=== PATIENT | male | born 1970 | race Asian ===

== ENCOUNTER 2022-07-25 12:37 | Inpatient (IN) | payer MEDICAID, OTHER ==
[~2022-07-25] VITALS: Ht 170.2 cm; Wt 63.0 kg
[2022-07-25] MEDS ORDERED: LEVETIRACETAM 1000MG PREMIX 100 ML IV ONE (13:15)
[2022-07-25 16:06] LABS: BASOPHILS % 0.3 % (0.0-2.0); HEMATOCRIT. 40.4 % (42.0-52.0); LYMPHOCYTES % 12.9 % (20.0-50.0); MEAN CORPUSCULAR HEMOGLOBIN 35.4 pg (28.0-32.0); MEAN CORPUSCULAR VOLUME 102.2 fL (80.0-94.0); MEAN PLATELET VOLUME 9.3 fl (7.4-10.4); MONOCYTES % 11.9 % (2.0-8.0); NEUTROPHILS % 74.9 % (40.0-76.0); PLATELET 108 x1000/uL (130-400); RED BLOOD CELL COUNT 3.96 mill/uL (4.7-6.1); RED CELL DISTRIBUTION WIDTH 12.8 % (11.6-14.6)
[2022-07-25 16:10] LABS: CHLORIDE 96 mEq/L (98-107)
[2022-07-25 16:21] LABS: ETHANOL BLOOD < 10 mg/dL
[2022-07-25] MEDS ORDERED: POTASSIUM CHLORIDE 20MEQ/PACKET PO ONE (16:45)
[2022-07-25] MEDS ORDERED: DOCUSATE SODIUM 100MG CAPSULE PO PRN (17:45)
[2022-07-25] MEDS ORDERED: NITROGLYCERIN 0.4MG TABLET SL SL PRN (17:45)
[2022-07-25] MEDS ORDERED: GUAIFENESIN 200MG/10ML SUGAR FREE UDC PO PRN (17:45)
[2022-07-25] MEDS ORDERED: KETOROLAC 15MG/ML VIAL IV PRN (17:45)
[2022-07-25] MEDS ORDERED: ACETAMINOPHEN 325MG TABLET PO PRN ×2 (17:45)
[2022-07-25] MEDS ORDERED: POTASSIUM CHLORIDE 20MEQ TABLET SR PO NR (17:45)
[2022-07-25] MEDS ORDERED: ZOLPIDEM TARTRATE 5MG TABLET PO PRN (17:45)
[2022-07-25] MEDS ORDERED: ONDANSETRON HCL 4MG/2ML INJ IV PRN (17:45)
[2022-07-25] MEDS ORDERED: KCL 20MEQ/100ML PREMIX 100 ML IV NR (17:45)
[2022-07-25] MEDS ORDERED: CHLORDIAZEPOXIDE 25MG CAPSULE PO ONE (17:45)
[2022-07-25] MEDS ORDERED: PIPERACILLIN/TAZ 3.375G PREMIX 50 ML IV SCH (18:30)
[2022-07-25] MEDS ORDERED: MVI, ADULT NO.1 10 ML, FOLIC ACID 1 MG, THIAMINE HCL 100 MG in SODIUM CHLORIDE 0.9% 1,0... IV ONE ×4 (19:00)
[2022-07-25 19:32] LABS: T4 FREE 1.31 ng/dL (0.76-1.46)
[2022-07-25 19:54] LABS: VITAMIN B12 SERUM 1734 pg/mL (211-911)
[2022-07-25] MEDS ORDERED: MAGNESIUM 4 G PREMIX 100 ML IV ONE (20:15)
[2022-07-25] MEDS ORDERED: LORAZEPAM 2MG/ML CPJ IV PRN (21:15)
[2022-07-25] MEDS: ENOXAPARIN 40MG/0.4ML SYR SUBCUT SCH (21:32)
[2022-07-25] MEDS: FAMOTIDINE 20MG TABLET PO SCH (21:32)
[2022-07-25 22:05] VITALS: BP 199/148
[2022-07-25 22:14] VITALS: BP 199/148
[2022-07-26] VITALS: BP 144/90
[2022-07-26] MEDS ORDERED: CLONIDINE 0.1MG TABLET PO PRN
[2022-07-26 00:27] LABS: CLARITY URINE CLEAR (CLEAR); COLOR URINE YELLOW (YELLOW); KETONES URINE NEGATIVE (NEGATIVE); LEUKOCYTE ESTERASE URINE NEGATIVE (NEGATIVE); NITRITE URINE NEGATIVE (NEGATIVE); OCCULT BLOOD URINE NEGATIVE (NEGATIVE); PROTEIN URINE TRACE (NEGATIVE); SPECIFIC GRAVITY URINE 1.013 (1.005-1.030)
[2022-07-26] MEDS ORDERED: KCL 20MEQ/100ML PREMIX 100 ML IV NR (00:30)
[2022-07-26] MEDS: CHLORDIAZEPOXIDE 25MG CAPSULE PO SCH ×4 (00:38→21:50)
[2022-07-26 01:35] LABS: *AMPHETAMINES SCREEN URINE NEGATIVE (NEGATIVE); *BARBITURATES SCREEN URINE NEGATIVE (NEGATIVE); *BENZODIAZEPINES SCREEN URINE NEGATIVE (NEGATIVE); *COCAINE SCREEN URINE NEGATIVE (NEGATIVE); CANNABINOID URINE SCREEN NEGATIVE (NEGATIVE); METHADONE URINE SCREEN NEGATIVE (NEGATIVE); OPIATES URINE SCREEN NEGATIVE (NEGATIVE); PHENCYCLIDINE URINE SCREEN NEGATIVE (NEGATIVE)
[2022-07-26] MEDS ORDERED: AMLO2.5T2 MT (03:41)
[2022-07-26] MEDS ORDERED: FINA1TAB18 PO (03:41)
[2022-07-26] MEDS ORDERED: LOSA50TA41 MT (03:41)
[2022-07-26 04:00] VITALS: BP 148/88
[2022-07-26] MEDS ORDERED: PIPERACILLIN/TAZOBACTAM 3.375G in DEXT 5% WATER 50ML IV SCH (05:00)
[2022-07-26] MEDS: PIPERACILLIN/TAZOBACTAM 3.375G in DEXT 5% WATER 50ML IV SCH ×3 (06:04→21:52)
[2022-07-26 07:46] LABS: CHLORIDE 99 mEq/L (98-107)
[2022-07-26 07:54] LABS: PHOSPHORUS 2.1 mg/dL (2.5-4.9)
[2022-07-26 08:00] VITALS: BP 148/95
[2022-07-26 08:16] LABS: HEMATOCRIT. 37.9 % (42.0-52.0); HEMOGLOBIN. 12.9 g/dL (14.0-18.0); MEAN CORPUSCULAR HEMOGLOBIN 36.1 pg (28.0-32.0); MEAN PLATELET VOLUME 10.4 fl (7.4-10.4); PLATELET 78 x1000/uL (130-400); RED BLOOD CELL COUNT 3.58 mill/uL (4.7-6.1); RED CELL DISTRIBUTION WIDTH 12.8 % (11.6-14.6)
[2022-07-26] MEDS ORDERED: LEVETIRACETAM 500MG PREMIX 100 ML IV SCH (09:00)
[2022-07-26] MEDS: FAMOTIDINE 20MG TABLET PO SCH ×2 (09:20→21:50)
[2022-07-26] MEDS: FOLIC ACID 1MG TABLET PO SCH (09:20)
[2022-07-26] MEDS: THIAMINE HCL 100MG TABLET PO SCH (09:21)
[2022-07-26] MEDS: LEVETIRACETAM 500MG PREMIX 100 ML IV SCH ×2 (10:30→21:53)
[2022-07-26 12:14] VITALS: BP 135/87
[2022-07-26 13:18] LABS: PLATELET ESTIMATE DECREASED
[2022-07-26] MEDS ORDERED: WATER IV ONE (13:45)
[2022-07-26] MEDS ORDERED: DEXTROSE 5% IV ONE (13:45)
[2022-07-26] MEDS ORDERED: POTASSIUM PHOS M BASIC D BASIC IV ONE (13:45)
[2022-07-26] MEDS ORDERED: POTASSIUM PHOS,M-BASIC-D-BASIC 30 MMOL in DEXT 5% WATER 500 ML IV NR (15:30)
[2022-07-26] MEDS: FUROSEMIDE 20MG/2ML VIAL IVP SCH (15:48)
[2022-07-26 15:56] VITALS: BP 134/96
[2022-07-26 20:00] VITALS: BP 111/92
[2022-07-26] MEDS: ENOXAPARIN 40MG/0.4ML SYR SUBCUT SCH (21:00)
[2022-07-27] VITALS: BP 155/102
[2022-07-27 06:00] VITALS: BP 130/85
[2022-07-27] MEDS: CHLORDIAZEPOXIDE 25MG CAPSULE PO SCH ×3 (06:22→21:39)
[2022-07-27] MEDS: PIPERACILLIN/TAZOBACTAM 3.375G in DEXT 5% WATER 50ML IV SCH ×3 (06:22→21:39)
[2022-07-27 08:00] VITALS: BP 140/94
[2022-07-27 08:15] LABS: BASOPHILS % 0.8 % (0.0-2.0); EOSINOPHILS % 0.7 % (0.0-5.0); HEMATOCRIT. 38.7 % (42.0-52.0); HEMOGLOBIN. 13.4 g/dL (14.0-18.0); MEAN CORPUSCULAR HEMOGLOBIN 35.5 pg (28.0-32.0); MEAN CORPUSCULAR VOLUME 102.8 fL (80.0-94.0); MONOCYTES % 13.1 % (2.0-8.0); NEUTROPHILS % 66.4 % (40.0-76.0); PLATELET 116 x1000/uL (130-400); RED BLOOD CELL COUNT 3.77 mill/uL (4.7-6.1); RED CELL DISTRIBUTION WIDTH 12.7 % (11.6-14.6)
[2022-07-27 08:39] LABS: CHLORIDE 98 mEq/L (98-107)
[2022-07-27] MEDS: FAMOTIDINE 20MG TABLET PO SCH ×2 (08:43→21:39)
[2022-07-27] MEDS: THIAMINE HCL 100MG TABLET PO SCH (08:43)
[2022-07-27] MEDS: FOLIC ACID 1MG TABLET PO SCH (08:43)
[2022-07-27] MEDS: FUROSEMIDE 20MG/2ML VIAL IVP SCH (08:44)
[2022-07-27] MEDS: LEVETIRACETAM 500MG PREMIX 100 ML IV SCH (08:47)
[2022-07-27] MEDS ORDERED: THIA50TA12 MT (09:27)
[2022-07-27] MEDS ORDERED: FURO-152 MT (09:27)
[2022-07-27] MEDS ORDERED: FOLI-43 MT (09:27)
[2022-07-27] MEDS ORDERED: LORAZEPAM 2MG/ML CPJ IV SCH (11:30)
[2022-07-27] MEDS: NICOTINE 21MG PATCH TD SCH (11:43)
[2022-07-27 12:00] VITALS: BP 210/117
[2022-07-27] MEDS ORDERED: CHLORDIAZEPOXIDE 25MG CAPSULE PO NR (12:00)
[2022-07-27] MEDS: CLONIDINE 0.2MG TABLET PO PRN ×2 (12:21→23:55)
[2022-07-27] MEDS: DIPHENHYDRAMINE 50MG CAPSULE PO PRN (12:31)
[2022-07-27] MEDS ORDERED: FOLIC ACID 1 MG, THIAMINE HCL 100 MG, MVI, ADULT NO.1 10 ML in SODIUM CHLORIDE 0.9% 1,0... IV ONE ×4 (13:00)
[2022-07-27] MEDS ORDERED: [UNRECOGNIZED DRUG - REMARK] IV ONE ×4 (13:00)
[2022-07-27] MEDS ORDERED: POTASSIUM CHLORIDE 20MEQ TABLET SR PO SCH ×2 (14:00→18:00)
[2022-07-27] MEDS ORDERED: AMLODIPINE 10MG TABLET PO SCH (15:15)
[2022-07-27] MEDS ORDERED: MAGNESIUM 4 G PREMIX 100 ML IV ONE (15:30)
[2022-07-27 16:00] VITALS: BP 127/83
[2022-07-27] MEDS: LORAZEPAM 2MG/ML CPJ IV PRN ×2 (17:21→23:27)
[2022-07-27 20:02] VITALS: BP 139/82
[2022-07-27] MEDS: ENOXAPARIN 40MG/0.4ML SYR SUBCUT SCH (21:40)
[2022-07-28] VITALS (7 sets, daily range): BP systolic 121–147; BP diastolic 83–97
[2022-07-28] MEDS: LORAZEPAM 2MG/ML CPJ IV PRN (05:42)
[2022-07-28] MEDS: CHLORDIAZEPOXIDE 25MG CAPSULE PO SCH ×3 (05:42→21:39)
[2022-07-28] MEDS: PIPERACILLIN/TAZOBACTAM 3.375G in DEXT 5% WATER 50ML IV SCH ×3 (05:43→21:38)
[2022-07-28 05:57] LABS: BASOPHILS % 0.8 % (0.0-2.0); EOSINOPHILS % 1.1 % (0.0-5.0); HEMATOCRIT. 34.4 % (42.0-52.0); HEMOGLOBIN. 11.9 g/dL (14.0-18.0); LYMPHOCYTES % 19.9 % (20.0-50.0); MEAN CORPUSCULAR HEMOGLOBIN 35.5 pg (28.0-32.0); MEAN CORPUSCULAR VOLUME 102.7 fL (80.0-94.0); MEAN PLATELET VOLUME 9.4 fl (7.4-10.4); NEUTROPHILS % 65.2 % (40.0-76.0); PLATELET 149 x1000/uL (130-400); RED BLOOD CELL COUNT 3.35 mill/uL (4.7-6.1); RED CELL DISTRIBUTION WIDTH 12.4 % (11.6-14.6)
[2022-07-28 06:28] LABS: CHLORIDE 105 mEq/L (98-107)
[2022-07-28] MEDS ORDERED: POTASSIUM CHLORIDE 20MEQ TABLET SR PO NR (07:30)
[2022-07-28] MEDS ORDERED: MAGNESIUM 2 G PREMIX 50 ML IV NR (08:00)
[2022-07-28] MEDS: THIAMINE HCL 100MG TABLET PO SCH (08:48)
[2022-07-28] MEDS: FOLIC ACID 1MG TABLET PO SCH (08:48)
[2022-07-28] MEDS: FAMOTIDINE 20MG TABLET PO SCH ×2 (08:49→21:38)
[2022-07-28] MEDS: NICOTINE 21MG PATCH TD SCH (08:51)
[2022-07-28] MEDS: FUROSEMIDE 20MG/2ML VIAL IVP SCH (09:00)
[2022-07-28] MEDS: ENOXAPARIN 40MG/0.4ML SYR SUBCUT SCH (21:38)
[2022-07-29 04:00] VITALS: BP 139/103
[2022-07-29] MEDS: PIPERACILLIN/TAZOBACTAM 3.375G in DEXT 5% WATER 50ML IV SCH ×3 (05:54→21:31)
[2022-07-29] MEDS: CHLORDIAZEPOXIDE 25MG CAPSULE PO SCH ×3 (06:01→21:31)
[2022-07-29 08:00] VITALS: BP 146/92
[2022-07-29 08:03] LABS: HEMATOCRIT. 37.3 % (42.0-52.0); HEMOGLOBIN. 13.2 g/dL (14.0-18.0); MEAN CORPUSCULAR HEMOGLOBIN 36.3 pg (28.0-32.0); MEAN CORPUSCULAR VOLUME 102.5 fL (80.0-94.0); MEAN PLATELET VOLUME 9.2 fl (7.4-10.4); PLATELET 211 x1000/uL (130-400); RED BLOOD CELL COUNT 3.64 mill/uL (4.7-6.1); RED CELL DISTRIBUTION WIDTH 12.7 % (11.6-14.6)
[2022-07-29 08:48] LABS: CHLORIDE 105 mEq/L (98-107)
[2022-07-29] MEDS: FOLIC ACID 1MG TABLET PO SCH (10:36)
[2022-07-29] MEDS: THIAMINE HCL 100MG TABLET PO SCH (10:36)
[2022-07-29] MEDS: FAMOTIDINE 20MG TABLET PO SCH ×2 (10:36→21:31)
[2022-07-29] MEDS: NICOTINE 21MG PATCH TD SCH (10:36)
[2022-07-29] MEDS: FUROSEMIDE 20MG/2ML VIAL IVP SCH (10:36)
[2022-07-29 12:00] VITALS: BP 149/99
[2022-07-29 16:24] LABS: PLATELET ESTIMATE NORMAL
[2022-07-29 20:00] VITALS: BP 128/84
[2022-07-29] MEDS: ENOXAPARIN 40MG/0.4ML SYR SUBCUT SCH (21:32)
[2022-07-30] VITALS: BP 144/90
[2022-07-30 04:00] VITALS: BP 147/92
[2022-07-30] MEDS: CHLORDIAZEPOXIDE 25MG CAPSULE PO SCH (05:41)
[2022-07-30] MEDS: PIPERACILLIN/TAZOBACTAM 3.375G in DEXT 5% WATER 50ML IV SCH ×3 (05:41→21:02)
[2022-07-30 07:03] LABS: HEMATOCRIT. 38.1 % (42.0-52.0); HEMOGLOBIN. 13.3 g/dL (14.0-18.0); MEAN CORPUSCULAR VOLUME 103.1 fL (80.0-94.0); MEAN PLATELET VOLUME 9.1 fl (7.4-10.4); PLATELET 224 x1000/uL (130-400)
[2022-07-30 07:36] LABS: CHLORIDE 102 mEq/L (98-107)
[2022-07-30 07:56] LABS: PHOSPHORUS 1.9 mg/dL (2.5-4.9)
[2022-07-30 08:00] VITALS: BP 127/95
[2022-07-30] MEDS: FUROSEMIDE 20MG/2ML VIAL IVP SCH (08:31)
[2022-07-30] MEDS: FOLIC ACID 1MG TABLET PO SCH (08:31)
[2022-07-30] MEDS: THIAMINE HCL 100MG TABLET PO SCH (08:31)
[2022-07-30] MEDS: NICOTINE 21MG PATCH TD SCH (08:31)
[2022-07-30] MEDS: FAMOTIDINE 20MG TABLET PO SCH ×2 (08:31→20:43)
[2022-07-30] MEDS ORDERED: MAGNESIUM 4 G PREMIX 100 ML IV NR (10:00)
[2022-07-30] MEDS ORDERED: POTASSIUM PHOS,M-BASIC-D-BASIC 30 MMOL in SODIUM CHLORIDE 0.9% 500 ML IV ONE (10:00)
[2022-07-30 12:00] VITALS: BP 159/80
[2022-07-30] MEDS: CHLORDIAZEPOXIDE 10MG CAPSULE PO SCH ×2 (14:50→21:02)
[2022-07-30 16:00] VITALS: BP 157/99
[2022-07-30 20:00] VITALS: BP 150/85
[2022-07-30] MEDS: DIPHENHYDRAMINE 50MG CAPSULE PO PRN (20:43)
[2022-07-30] MEDS: ENOXAPARIN 40MG/0.4ML SYR SUBCUT SCH (20:43)
[2022-07-31] VITALS: BP 161/100
[2022-07-31] MEDS: CHLORDIAZEPOXIDE 10MG CAPSULE PO SCH (05:07)
[2022-07-31] MEDS: DIPHENHYDRAMINE 50MG CAPSULE PO PRN (05:08)
[2022-07-31] MEDS: PIPERACILLIN/TAZOBACTAM 3.375G in DEXT 5% WATER 50ML IV SCH (05:08)
[2022-07-31 06:35] VITALS: BP 148/101
[2022-07-31 07:46] LABS: CHLORIDE 106 mEq/L (98-107)
[2022-07-31 07:58] LABS: HEMATOCRIT. 40.2 % (42.0-52.0); MEAN CORPUSCULAR HEMOGLOBIN 36.2 pg (28.0-32.0); MEAN PLATELET VOLUME 9.6 fl (7.4-10.4); PLATELET 287 x1000/uL (130-400); RED BLOOD CELL COUNT 3.87 mill/uL (4.7-6.1); RED CELL DISTRIBUTION WIDTH 12.9 % (11.6-14.6)
[2022-07-31 08:00] VITALS: BP 143/83
[2022-07-31] MEDS: FUROSEMIDE 20MG/2ML VIAL IVP SCH (09:02)
[2022-07-31] MEDS: FAMOTIDINE 20MG TABLET PO SCH ×2 (09:02→22:05)
[2022-07-31] MEDS: FOLIC ACID 1MG TABLET PO SCH (09:02)
[2022-07-31] MEDS: THIAMINE HCL 100MG TABLET PO SCH (09:02)
[2022-07-31] MEDS: NICOTINE 21MG PATCH TD SCH (09:02)
[2022-07-31 09:58] LABS: PLATELET ESTIMATE NORMAL
[2022-07-31 15:35] LABS: PLATELET ESTIMATE NORMAL
[2022-07-31 16:00] VITALS: BP 143/94
[2022-07-31 20:00] VITALS: BP 163/99
[2022-07-31] MEDS: ENOXAPARIN 40MG/0.4ML SYR SUBCUT SCH (22:05)
[2022-07-31] MEDS ORDERED: DOCUSATE SODIUM 250MG CAPSULE PO PRN (22:30)
[2022-07-31] MEDS ORDERED: DOCUSATE SODIUM 100MG CAPSULE PO SCH (22:30)
[2022-08-01] VITALS: BP 147/98
[2022-08-01 08:00] VITALS: BP 155/101
[2022-08-01] MEDS: FUROSEMIDE 20MG/2ML VIAL IVP SCH (08:23)
[2022-08-01] MEDS: FOLIC ACID 1MG TABLET PO SCH (08:24)
[2022-08-01] MEDS: NICOTINE 21MG PATCH TD SCH (08:24)
[2022-08-01] MEDS: THIAMINE HCL 100MG TABLET PO SCH (08:24)
[2022-08-01] MEDS: FAMOTIDINE 20MG TABLET PO SCH ×2 (08:24→21:45)
[2022-08-01 12:00] VITALS: BP 134/84
[2022-08-01 16:00] VITALS: BP 125/85
[2022-08-01 20:00] VITALS: BP 133/85
[2022-08-01] MEDS: ENOXAPARIN 40MG/0.4ML SYR SUBCUT SCH (21:46)
[2022-08-02] VITALS (7 sets, daily range): BP systolic 114–147; BP diastolic 75–93
[2022-08-02] MEDS: THIAMINE HCL 100MG TABLET PO SCH (09:41)
[2022-08-02] MEDS: FAMOTIDINE 20MG TABLET PO SCH (09:41)
[2022-08-02] MEDS: FUROSEMIDE 20MG/2ML VIAL IVP SCH (09:41)
[2022-08-02] MEDS: NICOTINE 21MG PATCH TD SCH (09:41)
[2022-08-02] MEDS: FOLIC ACID 1MG TABLET PO SCH (09:41)
== END 2022-08-02 21:12 | disposition home or self-care (01) | DRG 52 ==
LOC: ER 13:38 → MICUSO 17:15 → 3WST 07-26 00:20 → UNDODISIN 07-30 15:20
PROVIDERS: ADMIT Internal Medicine; ATTEND Internal Medicine
DX: G92.9 Unspecified toxic encephalopathy (principal); I42.9 Cardiomyopathy, unspecified; E44.1 Mild protein-calorie malnutrition; D52.9 Folate deficiency anemia, unspecified; S91.001A Unspecified open wound, right ankle, initial encounter; I50.22 Chronic systolic (congestive) heart failure; I11.0 Hypertensive heart disease with heart failure; R56.9 Unspecified convulsions; F10.139 Alcohol abuse with withdrawal, unspecified; M79.604 Pain in right leg; E83.42 Hypomagnesemia; Z68.21 Body mass index [BMI] 21.0-21.9, adult; E78.5 Hyperlipidemia, unspecified; E87.6 Hypokalemia; F17.210 Nicotine dependence, cigarettes, uncomplicated; R74.01 Elevation of levels of liver transaminase levels; Z78.1 Physical restraint status
CPT/HCPCS: 36415; 70551; 71045; 80048; 80053; 80061; 80305; 80320; 81003; 82607; 82746; 83036; 83540; 83550; 83605; 83735; 83880; 84100; 84132; 84145; 84439; 84443; 84484; 85025; 93005; 93306; 93970; 97116; 97162; 99291; J1650; J1940; J1953; J2060; J2543; J3411; J3475; J3480; J3490; J7030; J7040; J7060; J7120; Q0163; G0480